=== PATIENT | male | born 1960 | race American Indian/Alaskan Native ===

== ENCOUNTER 2016-05-14 16:25 | Emergency (ER) | payer MEDICARE ==
[2016-05-14 17:45] LABS: Hematocrit 34.4 % (35.5-45.6); Mean Corpuscular HGB Conc 32 % (32-34); Mean Corpuscular Hemoglobin 27 pg (28-32); Mean Corpuscular Volume 85 fl (84-94); Platelet Count 171 K/mm3 (140-440); Red Blood Count 4.05 M/mm3 (3.65-5.03); Red Cell Distribution Width 17.4 % (13.2-15.2); White Blood Count 3.8 K/mm3 (4.5-11.0)
[2016-05-14 17:49] LABS: Albumin 3.6 g/dL (3.9-5); Albumin/Globulin Ratio 0.9 %; BUN/Creatinine Ratio 2.68; Bilirubin,Total 0.3 mg/dL (0.1-1.2); Calcium 9.6 mg/dL (8.4-10.2); Chloride 97.9 mmol/L (98-107); Potassium 5.2 mmol/L (3.6-5.0); Total Protein 7.4 g/dL (6.3-8.2)
[2016-05-14 18:26] LABS: Basophils % (Manual) 0 % (0.0-1.8); Blastocytes % (Manual) 0 %; Elliptocytes 1+
[2016-05-14 18:27] LABS: Hypochromasia 1+
[2016-05-14 18:28] LABS: Diff Status Complete; Poikilocytosis Few
[2016-05-15] MEDS ORDERED: TORADOL IM ONE (03:21)
--- NOTE | 2016-05-15 03:29 | Emergency Department Report ---
HPI - General Chief Complaint: Abdominal Pain Time Seen by Provider: 05/15/16 03:14 - HPI HPI: Room 26 The patient is a 56-year-old male presenting with a chief complaint of left flank pain. The patient states his had pain in his left back for the past 4 days. Patient states pain has been constant and he only describes the discomfort as a "pain." Patient does admit to nausea vomiting but he had attributed that to his hemodialysis. Patient denies abdominal pain or fever. The patient does not make urine the patient was last dialyzed 05/13/2016 Location: Left lumbar, paraspinous region Duration: 4 Days Quality: "Pain" Severity: 11/29 Modifying factors: [see above] Context: [see above] Mode of transportation: The patient drove himself to the emergency department and there are no visitors present ED Past Medical Hx - Past Medical History Hx CVA: Yes Additional medical history: Dialysis - Surgical History Additional Surgical History: Button holes dialysis access to left forearm - Family History Family history: no significant - Social History Smoking Status: Never Smoker Substance Use Type: None - Medications Home Medications: Home Medications Medication Instructions Recorded Confirmed Last Taken Type Cyclobenzaprine [Flexeril] 10 mg PO TID PRN #14 tablet 05/15/16 Unknown Rx HYDROcodone/APAP 5-325 [[place] 1 - 2 each PO Q6HR PRN #14 tablet 05/15/16 Unknown Rx 5/325] Ibuprofen [Motrin 800 MG tab] 800 mg PO Q8HR PRN #20 tablet 05/15/16 Unknown Rx ED Review of Systems ROS: Stated complaint: KIDNEY PAIN/DIZZINESS Other details as noted in HPI Comment: All other systems reviewed and negative Constitutional: denies: chills, fever Eyes: denies: eye pain, eye discharge, vision change ENT: denies: ear pain, throat pain Respiratory: denies: cough, shortness of breath, wheezing Cardiovascular: denies: chest pain, palpitations Endocrine: no symptoms reported Gastrointestinal: nausea. denies: abdominal pain Genitourinary: denies: urgency, dysuria Musculoskeletal: back pain Skin: denies: rash, lesions Neurological: denies: headache, weakness, paresthesias Psychiatric: denies: anxiety, depression Hematological/Lymphatic: denies: easy bleeding, easy bruising Physical Exam - Physical Exam Vital Signs: Vital Signs 03/05/15/16 05/15/16 16:54 00:54 00:55 Temperature 99.1 F Pulse Rate 84 66 61 Respiratory 18 13 18 Rate Blood Pressure 157/103 161/83 O2 Sat by Pulse 99 99 99 Oximetry 05/15/16 05/15/16 05/15/16 01:00 01:06 01:10 Temperature Pulse Rate 65 65 64 Respiratory 14 14 13 Rate Blood Pressure 146/88 146/88 146/88 O2 Sat by Pulse 98 98 99 Oximetry 05/15/16 05/15/16 05/15/16 01:15 01:20 01:26 Temperature Pulse Rate 64 70 75 Respiratory 13 12 11 L Rate Blood Pressure 143/79 143/79 143/79 O2 Sat by Pulse 97 96 99 Oximetry 05/15/16 05/15/16 05/15/16 01:30 01:36 01:40 Temperature Pulse Rate 73 70 65 Respiratory 11 L 16 12 Rate Blood Pressure 130/88 130/88 130/88 O2 Sat by Pulse 100 97 94 Oximetry 05/15/16 05/15/16 05/15/16 01:45 01:50 01:56 Temperature Pulse Rate 72 67 60 Respiratory 14 13 14 Rate Blood Pressure 131/80 131/80 131/80 O2 Sat by Pulse 93 95 Oximetry 05/15/16 05/15/16 05/15/16 02:00 02:06 02:10 Temperature Pulse Rate 69 66 65 Respiratory 11 L 10 L 12 Rate Blood Pressure 131/80 137/79 137/79 O2 Sat by Pulse 94 96 94 Oximetry 05/15/16 05/15/16 05/15/16 02:15 02:20 02:26 Temperature Pulse Rate 61 60 65 Respiratory 11 L 15 13 Rate Blood Pressure 147/80 147/80 147/80 O2 Sat by Pulse 95 95 96 Oximetry 05/15/16 05/15/16 05/15/16 02:30 02:36 02:40 Temperature Pulse Rate 69 66 70 Respiratory 13 10 L 13 Rate Blood Pressure 141/82 141/82 141/82 O2 Sat by Pulse 97 96 97 Oximetry 05/15/16 05/15/16 05/15/16 02:45 02:50 02:56 Temperature Pulse Rate 62 60 68 Respiratory 9 L 10 L 11 L Rate Blood Pressure 134/77 134/77 134/77 O2 Sat by Pulse 100 97 100 Oximetry 05/15/16 03:00 Temperature Pulse Rate 64 Respiratory 10 L Rate Blood Pressure 139/79 O2 Sat by Pulse 100 Oximetry Physical Exam: GENERAL: The patient is well-developed well-nourished male lying on stretcher sleeping not appearing to be in acute distress. [] HEENT: Normocephalic. Atraumatic. Extraocular motions are intact. Patient has moist mucous membranes. NECK: Supple. Trachea midline CHEST/LUNGS: Clear to auscultation. There is no respiratory distress noted. HEART/CARDIOVASCULAR: Regular. There is no tachycardia. There is no gallop rub or murmur. ABDOMEN: Abdomen is soft, nontender. Patient has normal bowel sounds. There is no abdominal distention. SKIN: There is no rash. There is no edema. There is no diaphoresis. NEURO: The patient is awake, alert, and oriented. The patient is cooperative. The patient has normal speech MUSCULOSKELETAL: There is no CVA tenderness. There is no evidence of acute injury. ED Course Vital Signs 05/14/16 05/15/16 05/15/16 16:54 00:54 00:55 Temperature 99.1 F Pulse Rate 84 66 61 Respiratory 18 13 18 Rate Blood Pressure 157/103 161/83 O2 Sat by Pulse 99 99 99 Oximetry 05/15/16 05/15/16 05/15/16 01:00 01:06 01:10 Temperature Pulse Rate 65 65 64 Respiratory 14 14 13 Rate Blood Pressure 146/88 146/88 146/88 O2 Sat by Pulse 98 98 99 Oximetry 05/15/16 05/15/16 05/15/16 01:15 01:20 01:26 Temperature Pulse Rate 64 70 75 Respiratory 13 12 11 L Rate Blood Pressure 143/79 143/79 143/79 O2 Sat by Pulse 97 96 99 Oximetry 05/15/16 05/15/16 05/15/16 01:30 01:36 01:40 Temperature Pulse Rate 73 70 65 Respiratory 11 L 16 12 Rate Blood Pressure 130/88 130/88 130/88 O2 Sat by Pulse 100 97 94 Oximetry 05/15/16 05/15/16 05/15/16 01:45 01:50 01:56 Temperature Pulse Rate 72 67 60 Respiratory 14 13 14 Rate Blood Pressure 131/80 131/80 131/80 O2 Sat by Pulse 93 95 Oximetry 05/15/16 05/15/16 05/15/16 02:00 02:06 02:10 Temperature Pulse Rate 69 66 65 Respiratory 11 L 10 L 12 Rate Blood Pressure 131/80 137/79 137/79 O2 Sat by Pulse 94 96 94 Oximetry 05/15/16 05/15/16 05/15/16 02:15 02:20 02:26 Temperature Pulse Rate 61 60 65 Respiratory 11 L 15 13 Rate Blood Pressure 147/80 147/80 147/80 O2 Sat by Pulse 95 95 96 Oximetry 05/15/16 05/15/16 05/15/16 02:30 02:36 02:40 Temperature Pulse Rate 69 66 70 Respiratory 13 10 L 13 Rate Blood Pressure 141/82 141/82 141/82 O2 Sat by Pulse 97 96 97 Oximetry 05/15/16 05/15/16 05/15/16 02:45 02:50 02:56 Temperature Pulse Rate 62 60 68 Respiratory 9 L 10 L 11 L Rate Blood Pressure 134/77 134/77 134/77 O2 Sat by Pulse 100 97 100 Oximetry 05/15/16 03:00 Temperature Pulse Rate 64 Respiratory 10 L Rate Blood Pressure 139/79 O2 Sat by Pulse 100 Oximetry - Reevaluation(s) Reevaluation #1: 05/15/16 04:33 Patient resting comfortably ED Medical Decision Making - Lab Data Result diagrams: 05/14/16 17:11 05/14/16 17:11 Laboratory Tests 05/14/16 05/14/16 17:11 17:11 WBC 3.8 L RBC 4.05 Hgb 11.0 L Hct 34.4 L MCV 85 MCH 27 L MCHC 32 RDW 17.4 H Plt Count 171 Lymph % (Auto) Audio Visual Technician [place] % (Auto) Audio Visual Technician Eos % (Auto) Audio Visual Technician Baso % (Auto) Audio Visual Technician Lymph # Audio Visual Technician [place] # Audio Visual Technician Eos # Audio Visual Technician Baso # Audio Visual Technician Add Manual Diff Complete Total Counted 100 Seg Neutrophils % Audio Visual Technician Seg Neuts % (Manual) 62.0 Band Neutrophils % 0 Lymphocytes % (Manual) 24.0 Reactive Lymphs % (Man) 1.0 Monocytes % (Manual) 9.0 H Eosinophils % (Manual) 3.0 Basophils % (Manual) 0 Metamyelocytes % 0 Myelocytes % 1.0 Promyelocytes % 0 Blast Cells % 0 Nucleated RBC % Not Reportable Seg Neutrophils # Audio Visual Technician Seg Neutrophils # Man 2.4 Band Neutrophils # 0.0 Lymphocytes # (Manual) 0.9 L Abs React Lymphs (Man) 0.0 Monocytes # (Manual) 0.3 Eosinophils # (Manual) 0.1 Basophils # (Manual) 0.0 Metamyelocytes # 0.0 Myelocytes # 0.0 Promyelocytes # 0.0 Blast Cells # 0.0 WBC Morphology Not Reportable Hypersegmented Neuts Not Reportable Hyposegmented Neuts Not Reportable Hypogranular Neuts Not Reportable Smudge Cells Not Reportable Toxic Granulation Not Reportable Toxic Vacuolation Not Reportable Dohle Bodies Not Reportable Pelger-Huet Anomaly Not Reportable Heather Rods Not Reportable Platelet Estimate Appears normal Clumped Platelets Not Reportable Plt Clumps, EDTA Not Reportable Large Platelets Not Reportable Giant Platelets Not Reportable Platelet Satelliting Not Reportable Plt Morphology Comment Not Reportable RBC Morphology Not Reportable Dimorphic RBCs Not Reportable Polychromasia Not Reportable Hypochromasia 1+ Poikilocytosis Few Anisocytosis Not Reportable Microcytosis Not Reportable Macrocytosis Not Reportable Spherocytes Not Reportable Pappenheimer Bodies Not Reportable Sickle Cells Not Reportable Target Cells Not Reportable Tear Drop Cells Not Reportable Ovalocytes Not Reportable Helmet Cells Not Reportable [place]-Prue Bodies Not Reportable [place] Rings Not Reportable Gita Cells Not Reportable Bite Cells Not Reportable Crenated Cell Not Reportable Elliptocytes 1+ Acanthocytes (Spur) Not Reportable Rouleaux Not Reportable Hemoglobin C Crystals Not Reportable Schistocytes Not Reportable Malaria parasites Not Reportable Erik Bodies Not Reportable Hem Pathologist Commnt No Sodium 140 Potassium 5.2 H Chloride 97.9 L Carbon Dioxide 27 Anion Gap 20 BUN 26 H Creatinine 9.7 H Estimated GFR 7 BUN/Creatinine Ratio 2.68 Glucose 90 Calcium 9.6 Total Bilirubin 0.3 AST 19 ALT 16 Alkaline Phosphatase 80 Total Protein 7.4 Albumin 3.6 L Albumin/Globulin Ratio 0.9 Lipase 70 H - Radiology Data Radiology results: report reviewed (CT abdomen and pelvis), image reviewed (CT abdomen and pelvis) CT abdomen and pelvis (read by radiologist)-there is been a right nephrectomy. There is atrophy of the left kidney. There is a 2 mm stone in the left kidney. There is no hydronephrosis. There are diverticula of the colon. There is no diverticulitis or colitis or instruction or mass. The stomach, small bowel and appendix are normal. There is no ascites, free air, abscess or adenopathy. There are multilevel degenerative lumbar intervertebral disc changes. There is subcutaneous air and intramuscular in the left gluteal muscles and adjacent subcutaneous fat. This could be from recent injection or other trauma. Infection with gas forming organism not excluded. There is no mass or abscess. - Differential Diagnosis renal colic, muscle strain, lumbar radiculopathy, zoster Critical care attestation.: If time is entered above; I have spent that time in minutes in the direct care of this critically ill patient, excluding procedure time. ED Disposition Clinical Impression: ESRD (end stage renal disease) on dialysis, Hyperkalemia, Lumbar back pain, Degenerative disc disease, lumbar Disposition: DISCHARGED TO HOME OR SELFCARE Is pt being admited?: No Does the pt Need Aspirin: No Condition: Stable Instructions: Chronic Kidney Disease (ED), Acute Low Back Pain (ED), Lumbar Radiculopathy (ED), Degenerative Disc Disease (ED) Additional Instructions: Return to the emergency department immediately should you develop worsening symptoms, fever, inability to tolerate food or liquid or any other concerns. Prescriptions: Cyclobenzaprine [Flexeril] 10 mg PO TID PRN #14 tablet PRN Reason: Muscle Spasm HYDROcodone/APAP 5-325 [[place] 5/325] 1 - 2 each PO Q6HR PRN #14 tablet PRN Reason: Pain Ibuprofen [Motrin 800 MG tab] 800 mg PO Q8HR PRN #20 tablet PRN Reason: Pain Referrals: JOSSIE ROBERTS [Primary Care Provider] - 3-5 Days GREGG WRIGHT MD [Staff Physician] - 3-5 Days (Dr. Wright is an orthopedic surgeon please follow up with him for further evaluation) Time of Disposition: 04:41
[2016-05-15 04:03] VITALS: BP 138/84
--- NOTE | 2016-05-15 04:23 | Cat Scan Report ---
FINAL REPORT PROCEDURE: CT ABDOMEN PELVIS WO CON TECHNIQUE: Computerized axial tomography of the abdomen and pelvis was performed without intravenous contrast. This study is performed without intravascular contrast material and its sensitivity for abdominal and pelvic pathology, including neoplasms, inflammation, abscess, free fluid, thrombosis, arterial dissection and infarction, is reduced compared with a contrast enhanced study. HISTORY: left flank pain COMPARISON: No prior studies are available for comparison. FINDINGS: Visualized lower thorax: No significant abnormality. Liver: Normal size and attenuation. Spleen: Normal size and attenuation. Gallbladder and biliary system: Normal. Pancreas: Normal. Adrenals: Normal. Kidneys: There has been a right nephrectomy. There is atrophy of the left kidney. There is a 2 millimeter stone in the left kidney. There is no hydronephrosis. The. GI tract: There are diverticula of the colon. There is no diverticulitis or colitis or obstruction or mass. The stomach, small bowel and appendix are normal.. Lymph nodes and mesentery: Normal. Vasculature: There is calcified plaque in the abdominal aorta. There is no aneurysm.. Bladder: Normal. Reproductive organs: Normal. Peritoneum: There is no ascites, free air, abscess or adenopathy. The. Musculoskeletal structures: There are multilevel degenerative disc changes.. Other: There is subcutaneous air and intramuscular air on the left in the left gluteal muscles and adjacent subcutaneous fat. This could be from recent injection or other trauma. Infection with gas-forming organism not excluded. There is no mass or abscess.. IMPRESSION: There has been a right nephrectomy. There is atrophy of the left kidney. There is a 2 millimeter stone in the left kidney. There is no hydronephrosis. There are diverticula of the colon. There is no diverticulitis or colitis or obstruction or mass. The stomach, small bowel and appendix are normal.. There is no ascites, free air, abscess or adenopathy. The. There are multilevel degenerative the lumbar intervertebral disc changes.. There is subcutaneous air and intramuscular air in the left gluteal muscles and adjacent subcutaneous fat. This could be from recent injection or other trauma. Infection with gas-forming organism not excluded. There is no mass or abscess.. .
== END 2016-05-15 04:46 | disposition home or self-care (01) ==
LOC: ED 16:25
DX: N18.6 End stage renal disease (principal); M51.36 Other intervertebral disc degeneration, lumbar region; E87.5 Hyperkalemia; I63.9 Cerebral infarction, unspecified; Z99.2 Dependence on renal dialysis
CPT/HCPCS: 36415; 74176; 80053; 83690; 85007; 85025; 96372; 99284; J1885

== ENCOUNTER 2016-08-31 19:48 | Emergency (ER) | payer MEDICARE ==
[2016-08-31 20:16] LABS: Basophils % (Auto) 0.8 % (0.0-1.8); Eosinophils % (Auto) 4.4 % (0.0-4.3); Hematocrit 39.2 % (35.5-45.6); Hemoglobin 12.7 gm/dl (11.8-15.2); Mean Corpuscular HGB Conc 32 % (32-34); Mean Corpuscular Hemoglobin 28 pg (28-32); Mean Corpuscular Volume 86 fl (84-94); Platelet Count 227 K/mm3 (140-440); Red Blood Count 4.56 M/mm3 (3.65-5.03); Red Cell Distribution Width 18.5 % (13.2-15.2)
[2016-08-31 20:33] LABS: BUN/Creatinine Ratio 2.98; Bilirubin,Total 0.2 mg/dL (0.1-1.2); Calcium 9.7 mg/dL (8.4-10.2); Chloride 91.3 mmol/L (98-107); Potassium 4.2 mmol/L (3.6-5.0); Total Protein 8.2 g/dL (6.3-8.2)
[2016-08-31] MEDS ORDERED: BENTYL PO ONE (23:07)
[2016-08-31] MEDS ORDERED: CARAFATE PO ONE (23:07)
[2016-08-31] MEDS ORDERED: ALUM-MAG HYDROX-SIMETH 200-200-20MG/5ML PO ONE (23:07)
[2016-08-31] MEDS ORDERED: PEPCID PO ONE (23:07)
--- NOTE | 2016-08-31 23:09 | Emergency Department Report ---
ED General Adult HPI - General Chief complaint: Abdominal Pain Stated complaint: LEFT SIDE ABD PAIN Time Seen by Provider: 08/31/16 23:00 Source: patient, RN notes reviewed, old records reviewed Mode of arrival: Ambulatory Limitations: No Limitations - History of Present Illness Initial comments: This is a 56-year-old male. He is previously unknown to me. His nephrology specialist is Dr. Roberts. Patient has a past medical history of end-stage renal disease on dialysis, typically gets dialysis Monday, Monday, Monday. The patient is sent to the ER by his primary care filling hauler for evaluation of left lower quadrant pain. The pain has been present for 2 weeks. It is intermittent. It does not radiate anywhere. There is no nausea, vomiting or diarrhea. No fevers or chills. No chest pain or shortness of breath. No testicular pain. No irritative or obstructive urinary symptoms. Patient reports defecating normally. -: Gradual, week(s) Location: abdomen Radiation: non-radiation Quality: aching Consistency: intermittent Improves with: none Worsens with: none Associated Symptoms: denies other symptoms - Related Data Previous Rx's Medication Instructions Recorded Last Taken Type Cyclobenzaprine [Flexeril] 10 mg PO TID PRN #14 tablet 05/15/16 Unknown Rx HYDROcodone/APAP 5-325 [[place] 1 - 2 each PO Q6HR PRN #14 tablet 05/15/16 Unknown Rx 5/325] Ibuprofen [Motrin 800 MG tab] 800 mg PO Q8HR PRN #20 tablet 05/15/16 Unknown Rx Dicyclomine [Bentyl] 10 mg PO QID PRN #20 capsule 09/01/16 Unknown Rx Ondansetron [Zofran Odt] 4 mg PO QID PRN #20 tab.rapdis 09/01/16 Unknown Rx Allergies Allergy/AdvReac Type Severity Reaction Status Date / Time No Known Allergies Allergy Unverified 07/15/14 06:30 ED Review of Systems ROS: Stated complaint: LEFT SIDE ABD PAIN Other details as noted in HPI Constitutional: denies: fever Eyes: denies: vision change ENT: denies: epistaxis Respiratory: denies: cough Cardiovascular: denies: chest pain Gastrointestinal: abdominal pain Genitourinary: as per HPI. denies: testicular pain Musculoskeletal: denies: back pain Skin: denies: lesions Neurological: denies: weakness ED Past Medical Hx - Past Medical History Previous Medical History?: Yes Hx CVA: Yes (13 YEARS AGO) Hx Asthma: No Additional medical history: Dialysis - Surgical History Past Surgical History?: Yes Additional Surgical History: Button holes dialysis access to left forearm - Social History Smoking Status: Never Smoker Substance Use Type: None - Medications Home Medications: Home Medications Medication Instructions Recorded Confirmed Last Taken Type Cyclobenzaprine [Flexeril] 10 mg PO TID PRN #14 tablet 05/15/16 Unknown Rx HYDROcodone/APAP 5-325 [[place] 1 - 2 each PO Q6HR PRN #14 tablet 05/15/16 Unknown Rx 5/325] Ibuprofen [Motrin 800 MG tab] 800 mg PO Q8HR PRN #20 tablet 05/15/16 Unknown Rx Dicyclomine [Bentyl] 10 mg PO QID PRN #20 capsule 09/01/16 Unknown Rx Ondansetron [Zofran Odt] 4 mg PO QID PRN #20 tab.rapdis 09/01/16 Unknown Rx ED Physical Exam - General Limitations: No Limitations General appearance: alert, in no apparent distress - Head Head exam: Present: atraumatic, normocephalic - Eye Eye exam: Present: normal appearance, EOMI. Absent: nystagmus - ENT ENT exam: Present: normal exam, normal orophraynx, mucous membranes moist, normal external ear exam - Neck Neck exam: Present: normal inspection, full ROM. Absent: tenderness, meningismus - Respiratory Respiratory exam: Present: normal lung sounds bilaterally. Absent: respiratory distress, wheezes, rales, rhonchi, stridor, chest wall tenderness, accessory muscle use, decreased breath sounds, prolonged expiratory - Cardiovascular Cardiovascular Exam: Present: regular rate, normal rhythm, normal heart sounds. Absent: bradycardia, tachycardia, irregular rhythm, systolic murmur, diastolic murmur, rubs, gallop - GI/Abdominal GI/Abdominal exam: Present: soft, normal bowel sounds. Absent: distended, tenderness, guarding, rebound, rigid, pulsatile mass, hernia - Rectal Rectal exam: Present: deferred - exam: Present: normal inspection, other (no inguinal hernias appreciated). Absent: testicular tenderness, scrotal swelling External exam: Present: normal external exam, other (there is no testicular tenderness. There is normal testicular lie bilaterally. There is normal cremasteric reflex bilaterally.) - Extremities Exam Extremities exam: Present: normal inspection, full ROM, normal capillary refill , other (upper extremity graft with appropriate thrill. No redness, pus or streaking). Absent: pedal edema, joint swelling, calf tenderness - Back Exam Back exam: Present: normal inspection, full ROM. Absent: tenderness, CVA tenderness (R), CVA tenderness (L), muscle spasm, paraspinal tenderness, vertebral tenderness - Neurological Exam Neurological exam: Present: alert, oriented X3, normal gait, other (Extraocular movements intact. Tongue midline. No facial droop. Facial sensation intact to light touch in the V1, V2, V3 distribution bilaterally. 5 and 5 strength in 4 extremities.. Sensation is intact to light touch in 4 extremities.). Absent : motor sensory deficit - Psychiatric Psychiatric exam: Present: normal affect, normal mood - Skin Skin exam: Present: warm, dry, intact, normal color. Absent: rash ED Course Vital Signs 08/31/16 08/31/16 09/01/16 19:53 22:45 00:15 Temperature 97.4 F L Pulse Rate 100 H 89 87 Respiratory 20 16 18 Rate Blood Pressure 136/93 Blood Pressure 134/87 146/99 [Right] O2 Sat by Pulse 100 100 99 Oximetry ED Medical Decision Making - Lab Data Result diagrams: 08/31/16 20:01 08/31/16 20:01 Vital Signs 08/31/16 19:53 Temperature 97.4 F L Pulse Rate 100 H Respiratory 20 Rate Blood Pressure 136/93 O2 Sat by Pulse 100 Oximetry Lab Results 08/31/16 08/31/16 Range/Units 20:01 20:01 WBC 6.0 (4.5-11.0) K/mm3 RBC 4.56 (3.65-5.03) M/mm3 Hgb 12.7 (11.8-15.2) gm/dl Hct 39.2 (35.5-45.6) % MCV 86 (84-94) fl MCH 28 (28-32) pg MCHC 32 (32-34) % RDW 18.5 H (13.2-15.2) % Plt Count 227 (140-440) K/mm3 Lymph % (Auto) 23.5 (13.4-35.0) % Jay % (Auto) 12.5 H (0.0-7.3) % Eos % (Auto) 4.4 H (0.0-4.3) % Baso % (Auto) 0.8 (0.0-1.8) % Lymph # 1.4 (1.2-5.4) K/mm3 Jay # 0.7 (0.0-0.8) K/mm3 Eos # 0.3 (0.0-0.4) K/mm3 Baso # 0.0 (0.0-0.1) K/mm3 Seg Neutrophils % 58.8 (40.0-70.0) % Seg Neutrophils # 3.5 (1.8-7.7) K/mm3 Sodium 136 L (137-145) mmol/L Potassium 4.2 (3.6-5.0) mmol/L Chloride 91.3 L (98-107) mmol/L Carbon Dioxide 30 (22-30) mmol/L Anion Gap 19 mmol/L BUN 29 H (9-20) mg/dL Creatinine 9.7 H (0.8-1.5) mg/dL Estimated GFR 7 ml/min BUN/Creatinine Ratio 2.98 % Glucose 100 (75-100) mg/dL Calcium 9.7 (8.4-10.2) mg/dL Total Bilirubin 0.20 (0.1-1.2) mg/dL AST 17 (5-40) units/L ALT 11 (7-56) units/L Alkaline Phosphatase 64 (35-129) units/L Total Protein 8.2 (6.3-8.2) g/dL Albumin 4.0 (3.9-5) g/dL Albumin/Globulin Ratio 1.0 % - Radiology Data Radiology results: report reviewed, image reviewed Noncontrast CT scan of the abdomen and pelvis negative for acute disease. Chronic findings noted. Status post right nephrectomy - Medical Decision Making Differential diagnosis: Colitis, diverticulitis, renal colic, hernia, constipation Assessment and plan: 56-year-old male with 2 weeks of intermittent Left lower quadrant pain. He is afebrile, with reassuring vital signs, and his tachycardia has resolved. His genital exam is benign, his physical exam is benign, laboratory studies are unremarkable with the exception of chronic known renal insufficiency, and a noncontrast CT scan of the abdomen and pelvis did not demonstrate any significant disease. The patient was able to tolerate liquid feeds and he felt improved after pain medication. He will be discharged with pain medication, nausea medication, and instructions to follow up with outpatient primary care and nephrology. Return precautions are reviewed. Critical care attestation.: If time is entered above; I have spent that time in minutes in the direct care of this critically ill patient, excluding procedure time. ED Disposition Clinical Impression: ESRD (end stage renal disease) on dialysis, Abdominal pain, left lower quadrant Disposition: - TO HOME OR SELFCARE Is pt being admited?: No Does the pt Need Aspirin: No Condition: Stable Instructions: Abdominal Pain (ED) Additional Instructions: Take the pain medication, nausea medication as directed. Follow up with her primary care doctor or nephrology specialist within the next 7-10 days. Return to the ER right away with new pain, worsened pain, migration of pain, fevers, chills, chest pain, shortness of breath, confusion, weakness, inability to tolerate liquid feeds. Prescriptions: Dicyclomine [Bentyl] 10 mg PO QID PRN #20 capsule PRN Reason: Pain Ondansetron [Zofran Odt] 4 mg PO QID PRN #20 tab.rapdis PRN Reason: Nausea Referrals: RILEY ROBERTS MD [Primary Care Provider] - 3-5 Days JAYNE JUNIOR MD [Staff Physician] - 3-5 Days
--- NOTE | 2016-09-01 00:20 | Cat Scan Report ---
FINAL REPORT EXAM: CT ABDOMEN PELVIS WO CON HISTORY: llq abd pain HX OF NEPHRECTOMY PRIOR GI DIALYSIS CATHETER TECHNIQUE: Serial axial images through the abdomen and pelvis with coronal and sagittal reconstruction. PRIORS: None. FINDINGS: There is mild atelectasis in the left lung base. No pleural effusion is seen. The liver, gallbladder, pancreas, spleen and adrenal glands appear within normal limits. Right kidney is absent. There atrophy of the left kidney. There is a cyst in the left renal cortex that measures approximately 13 millimeters. Additional hypodense foci are seen which are too small to definitely characterize. Aorta is normal in caliber. Bladder is decompressed. Small amount of low-density a ascites is seen in pelvis. Appendix appears normal. There is not evidence of bowel obstruction. No gross bowel abnormality is identified. Degenerative changes are seen right hip and in the spine. Irregular appearance to the endplates are noted at L3-4 and L2-3. IMPRESSION: 1. Small volume a ascites in the pelvis. This was present on the prior examination as well. 2. Left renal cyst. Additional hypodense foci are seen in the left kidney which are too small to definitely characterize.
[2016-09-01 00:39] VITALS: BP 146/99
== END 2016-09-01 01:15 | disposition left against medical advice (07) ==
LOC: ED 19:48
DX: R10.32 Left lower quadrant pain (principal); N18.6 End stage renal disease; Z99.2 Dependence on renal dialysis; Z86.73 Personal history of transient ischemic attack (TIA), and cerebral infarction without residual deficits
CPT/HCPCS: 36415; 74176; 80053; 85025; 99284

== ENCOUNTER 2017-06-09 13:17 | Emergency (ER) | payer MEDICARE ==
[2017-06-09 14:35] LABS: Hematocrit 36.1 % (35.5-45.6); Hemoglobin 11.3 gm/dl (11.8-15.2); Mean Corpuscular HGB Conc 31 % (32-34); Mean Corpuscular Hemoglobin 28 pg (28-32); Mean Corpuscular Volume 89 fl (84-94); Platelet Count 137 K/mm3 (140-440); Red Blood Count 4.06 M/mm3 (3.65-5.03); Red Cell Distribution Width 19.8 % (13.2-15.2)
[2017-06-09 14:54] LABS: BUN/Creatinine Ratio 4; Blood Urea Nitrogen 46 mg/dL (9-20); Calcium 9.7 mg/dL (8.4-10.2); Hemolysis Index 4
[2017-06-09 15:53] LABS: Anisocytosis 1+; Ovalocytes Few; Tear Drop Cells Rare; Total Cells Counted 100
[2017-06-09 15:54] LABS: Platelet Estimate Consistent w Auto
[2017-06-09 21:23] VITALS: BP 144/99
--- NOTE | 2017-06-09 22:51 | Emergency Department Report ---
ED General Adult HPI - General Chief complaint: Medical Clearance Stated complaint: DIALYSIS Time Seen by Provider: 06/09/17 21:51 Source: patient Mode of arrival: Ambulatory Limitations: No Limitations - History of Present Illness Initial comments: Patient presents to emergency Department for dialysis. Patient states that he was sent to the ED via his inspecting machine adjuster for dialysis. Patient states his last dialysis treatment was on Monday. Patient denies shortness of breath or chest pain. -: Gradual Radiation: non-radiation Severity scale (0 -10): 0 Improves with: none Worsens with: none Associated Symptoms: denies other symptoms Treatments Prior to Arrival: none - Related Data Previous Rx's Medication Instructions Recorded Last Taken Type Cyclobenzaprine [Flexeril] 10 mg PO TID PRN #14 tablet 05/15/16 Unknown Rx HYDROcodone/APAP 5-325 [[place] 1 - 2 each PO Q6HR PRN #14 tablet 05/15/16 Unknown Rx 5/325] Ibuprofen [Motrin 800 MG tab] 800 mg PO Q8HR PRN #20 tablet 05/15/16 Unknown Rx Dicyclomine [Bentyl] 10 mg PO QID PRN #20 capsule 09/01/16 Unknown Rx Ondansetron [Zofran Odt] 4 mg PO QID PRN #20 tab.rapdis 09/01/16 Unknown Rx Allergies Allergy/AdvReac Type Severity Reaction Status Date / Time No Known Allergies Allergy Unverified 07/15/14 06:30 ED Review of Systems ROS: Stated complaint: DIALYSIS Other details as noted in HPI Comment: All other systems reviewed and negative Constitutional: denies: chills, fever Eyes: denies: eye pain, eye discharge, vision change ENT: denies: ear pain, throat pain Respiratory: denies: cough, shortness of breath, wheezing Cardiovascular: denies: chest pain, palpitations Endocrine: no symptoms reported Gastrointestinal: denies: abdominal pain, nausea, diarrhea Genitourinary: denies: urgency, dysuria Musculoskeletal: denies: back pain, joint swelling, arthralgia Skin: denies: rash, lesions Neurological: denies: headache, weakness, paresthesias Psychiatric: denies: anxiety, depression Hematological/Lymphatic: denies: easy bleeding, easy bruising ED Past Medical Hx - Past Medical History Hx CVA: Yes (13 YEARS AGO) Hx Renal Disease: Yes (DIALYSIS) Hx Asthma: No Additional medical history: Dialysis - Surgical History Additional Surgical History: Button holes dialysis access to left forearm, BACK SURGERY - Social History Smoking Status: Never Smoker Substance Use Type: None - Medications Home Medications: Home Medications Medication Instructions Recorded Confirmed Last Taken Type Cyclobenzaprine [Flexeril] 10 mg PO TID PRN #14 tablet 05/15/16 Unknown Rx HYDROcodone/APAP 5-325 [[place] 1 - 2 each PO Q6HR PRN #14 tablet 05/15/16 Unknown Rx 5/325] Ibuprofen [Motrin 800 MG tab] 800 mg PO Q8HR PRN #20 tablet 05/15/16 Unknown Rx Dicyclomine [Bentyl] 10 mg PO QID PRN #20 capsule 09/01/16 Unknown Rx Ondansetron [Zofran Odt] 4 mg PO QID PRN #20 tab.rapdis 09/01/16 Unknown Rx ED Physical Exam - General Limitations: No Limitations General appearance: alert, in no apparent distress - Head Head exam: Present: atraumatic, normocephalic - Eye Eye exam: Present: normal appearance - ENT ENT exam: Present: mucous membranes moist - Neck Neck exam: Present: normal inspection - Respiratory Respiratory exam: Present: normal lung sounds bilaterally. Absent: respiratory distress - Cardiovascular Cardiovascular Exam: Present: regular rate, normal rhythm. Absent: systolic murmur, diastolic murmur, rubs, gallop - GI/Abdominal GI/Abdominal exam: Present: soft, normal bowel sounds. Absent: distended, tenderness, guarding, rebound - Rectal Rectal exam: Present: deferred - Extremities Exam Extremities exam: Present: normal inspection - Back Exam Back exam: Present: normal inspection - Neurological Exam Neurological exam: Present: alert, oriented X3 - Psychiatric Psychiatric exam: Present: normal affect, normal mood - Skin Skin exam: Present: warm, dry, intact, normal color. Absent: rash ED Course Vital Signs 06/09/17 06/09/17 13:57 21:19 Temperature 98.8 F Pulse Rate 85 84 Respiratory 18 16 Rate Blood Pressure 136/93 Blood Pressure 144/99 [Left] Blood Pressure 144/99 [Right] O2 Sat by Pulse 99 99 Oximetry ED Medical Decision Making - Lab Data Result diagrams: 06/09/17 14:09 06/09/17 14:09 - Medical Decision Making Discussed patient in detail with Dr. Waters is a inspecting machine adjuster at the patient' s dialysis center. Since the patient has normal labs the patient can follow up tomorrow and have dialysis at his home dialysis This was discussed with the patient and he states that he understands that he should go tomorrow for dialysis Critical care attestation.: If time is entered above; I have spent that time in minutes in the direct care of this critically ill patient, excluding procedure time. ED Disposition Clinical Impression: ESRD (end stage renal disease) on dialysis Disposition: DC-01 TO HOME OR SELFCARE Is pt being admited?: No Does the pt Need Aspirin: No Condition: Stable Additional Instructions: As we discussed you should go to your dialysis center tomorrow for dialysis Referrals: JESSICA PABLO [Primary Care Provider] - 3-5 Days Time of Disposition: 23:18
== END 2017-06-09 23:25 | disposition home or self-care (01) ==
LOC: ED 13:17
DX: N18.6 End stage renal disease (principal)
CPT/HCPCS: 36415; 80048; 83880; 85007; 85025

== ENCOUNTER 2017-08-28 06:44 | Inpatient (IN) | payer MEDICARE ==
[2017-08-28] MEDS ORDERED: ECOTRIN PO ONE (07:04)
[2017-08-28 07:44] LABS: Hematocrit 37.5 % (35.5-45.6); Hemoglobin 12.1 gm/dl (11.8-15.2); Mean Corpuscular HGB Conc 32 % (32-34); Mean Corpuscular Hemoglobin 29 pg (28-32); Mean Corpuscular Volume 89 fl (84-94); Platelet Count 101 K/mm3 (140-440); Red Blood Count 4.22 M/mm3 (3.65-5.03); Red Cell Distribution Width 18.7 % (13.2-15.2)
[2017-08-28 07:47] LABS: Basophils % (Auto) 0.6 % (0.0-1.8); Eosinophils % (Auto) 0.5 % (0.0-4.3); Lymphocytes # (Auto) 1.3 K/mm3 (1.2-5.4); Lymphocytes % (Auto) 17.2 % (13.4-35.0); Monocytes # (Auto) 0.7 K/mm3 (0.0-0.8); Monocytes % (Auto) 9.3 % (0.0-7.3)
[2017-08-28 07:54] LABS: INR 1.08 (0.87-1.13)
[2017-08-28 07:55] LABS: Partial Thromboplastin Time 32.7 Sec. (24.2-36.6)
[2017-08-28] MEDS ORDERED: NACL 0.9% 500 ML 500 ML IV SCH (08:00)
[2017-08-28 08:01] LABS: Calcium 10.2 mg/dL (8.4-10.2)
--- NOTE | 2017-08-28 12:03 | History and Physical Report ---
History of Present Illness Date of examination: 08/28/17 Date of admission: 08/28/17 Chief complaint: Chest pain/hyperkalemia/end-stage renal disease History of present illness: Very pleasant 57-year-old -[place] male patient with significant history of hypertension end-stage renal disease on hemodialysis was scheduled for elective cath today by cardiology, however noted to have hyperkalemia with potassium of 6. Procedure was canceled, patient was evaluated by nephrology and is scheduled for stat hemodialysis Hospitalist services were requested to admit the patient. I have evaluated the patient in dialysis unit almost finishing hemodialysis. At the time of my evaluation patient denies any chest pain or shortness of breath Denies headache dizziness weakness or numbness. Past History Past Medical History: dialysis, ESRD, hypertension Past Surgical History: Other (AV graft, spine surgery) Social history: lives with family, full code. denies: smoking, alcohol abuse, prescription drug abuse Family history: hypertension Medications and Allergies Allergies Allergy/AdvReac Type Severity Reaction Status Date / Time No Known Allergies Allergy Unverified 07/15/14 06:30 Home Medications Medication Instructions Recorded Confirmed Last Taken Type Ibuprofen [Motrin 800 MG tab] 800 mg PO Q8HR PRN #20 tablet 05/15/16 08/28/17 Rx 800mg Ondansetron [Zofran Odt] 4 mg PO QID PRN #20 tab.rapdis 09/01/16 08/28/17 Rx 4mg Lisinopril [Zestril TAB] 2.5 mg PO 08/28/17 08/27/17 History 2.5mg Omeprazole 40 mg PO DAILY 08/28/17 08/28/17 08/27/17 History 40mg Active Meds: Active Medications Sodium Chloride (Nacl 0.9% 500 Ml) 500 mls @ 50 mls/hr IV DIRECT JEET Stop: 08/28/17 17:59 Review of Systems Constitutional: no weight loss, no weight gain, no fever, no chills Ears, nose, mouth and throat: no nasal congestion, no nasal discharge Cardiovascular: no chest pain, no palpitations, no shortness of breath Respiratory: no cough with sputum, no shortness of breath Gastrointestinal: no nausea, no vomiting, no diarrhea Genitourinary Male: no dysuria, no hematuria Musculoskeletal: no myalgias, no arthritis Integumentary: no rash, no lesions Neurological: no paralysis, no weakness, no parathesias, no seizures Psychiatric: no anxiety, no depression Endocrine: no cold intolerance, no heat intolerance Hematologic/Lymphatic: no easy bruising, no easy bleeding Allergic/Immunologic: no urticaria, no allergic rhinitis Exam - Constitutional Vitals: Temp Pulse Resp BP Pulse Ox 97.8 F 81 18 139/98 08/28/17 07:37 08/28/17 07:37 08/28/17 07:53 08/28/17 07:37 General appearance: Present: no acute distress, well-nourished - Neck Neck: Present: supple, normal ROM - Cardiovascular Rhythm: regular Heart Sounds: Present: S1 & S2 - Extremities Extremities: no ischemia, No edema - Abdominal General gastrointestinal: Present: soft, non-tender, non-distended, normal bowel sounds - Integumentary Integumentary: Present: clear, warm - Musculoskeletal Musculoskeletal: strength equal bilaterally - Psychiatric Psychiatric: appropriate mood/affect, cooperative - Neurologic Neurologic: CNII-XII intact, moves all extremities Results - Labs CBC & Chem 7: 08/28/17 07:35 08/28/17 07:35 Labs: Abnormal lab results 08/28/17 08/28/17 Range/Units 07:35 07:35 RDW 18.7 H (13.2-15.2) % Plt Count 101 L (140-440) K/mm3 [place] % (Auto) 9.3 H (0.0-7.3) % Seg Neutrophils % 72.4 H (40.0-70.0) % Potassium 6.0 H (3.6-5.0) mmol/L Chloride 95.6 L (98-107) mmol/L BUN 65 H (9-20) mg/dL Creatinine 10.9 H (0.8-1.5) mg/dL Assessment and Plan --Hyperkalemia; stat hemodialysis --End Stage renal disease on hemodialysis; Nephrology consultation, dialysis per schedule, closely monitor --Hypertension; resume home antihypertensives and when necessary medications --Chest pain/coronary artery disease, cardiology considering heart Closely monitor, aspirin, beta blockers, adithya inhibitors, nitrates and statins Serial cardiac enzymes and echocardiogram --DVT prophylaxis; heparin renal dose --DC planning. Case management Closely monitor the patient and adjust management as needed Plan of care reviewed with the patient
[2017-08-28] MEDS ORDERED: CALCIUM GLUCONATE 1,000 MG in NACL 0.9% 100 ML IV ONE (12:30)
--- NOTE | 2017-08-28 17:05 | Consultation ---
History of Present Illness - Reason for Consult Consult date: 08/28/17 end stage renal disease Requesting physician: ALFONZO ROQUE - History of Present Illness My cheek presented for elective cardiac cath . K found to be elevated and his procedure was cancelled . pt now undergoing dialysis . Tolerating well . No chest pain or SOB Past History Past Medical History: dialysis, hypertension Past Surgical History: Other (H/O AVF creation ) Social history: no significant social history Family history: no significant family history Medications and Allergies Allergies Allergy/AdvReac Type Severity Reaction Status Date / Time No Known Allergies Allergy Unverified 07/15/14 06:30 Home Medications Medication Instructions Recorded Confirmed Last Taken Type Ibuprofen [Motrin 800 MG tab] 800 mg PO Q8HR PRN #20 tablet 05/15/16 08/28/17 Rx 800mg Ondansetron [Zofran Odt] 4 mg PO QID PRN #20 tab.rapdis 09/01/16 08/28/17 Rx 4mg Lisinopril [Zestril TAB] 2.5 mg PO 08/28/17 08/27/17 History 2.5mg Omeprazole 40 mg PO DAILY 08/28/17 08/28/17 08/27/17 History 40mg Active Meds: Active Medications Aspirin (Baby Aspirin) 81 mg PO QDAY JEET Famotidine (Pepcid) 20 mg PO BID [facility] Sodium Chloride (Nacl 0.9% 500 Ml) 500 mls @ 50 mls/hr IV DIRECT JEET Stop: 08/28/17 17:59 Metoprolol Tartrate (Lopressor) 12.5 mg PO BID [facility] Review of Systems All systems: negative (as noted above) Exam - Vital Signs Vital signs: Vital Signs Temp Pulse Resp BP 97.8 F 81 18 139/98 08/28/17 07:37 08/28/17 07:37 08/28/17 07:37 08/28/17 07:37 - General Appearance General appearance: well-developed, well-nourished, appears stated age EENT: PERRL, mucous membranes moist Neck: Present: neck supple, trachea midline. Absent: JVD/HJR, Masses Respiratory: Clear to Ascultation Heart: regular, normal heart rate, S1S2, no murmurs Gastrointestinal: Present: normal, normoactive bowel sounds Integumentary: no rash, other (AVF left fore-arm . Cannulated for dialysis ) Results - Lab Results 08/28/17 07:35 08/28/17 07:35 Most recent lab results Calcium 10.2 mg/dL (8.4-10.2) 08/28/17 07:35 Assessment and Plan Impression * ESRD * Hyperkalemia * Hypertension Recommendation * Hemodialysis as being done for correction of hyperkalemia * Renal diet * Avoid nephrotoxins * No IV , BP or venipuncture in access arm * Adjus diet and meds for ESRD state * Check electrolytes in AM * Thanks, Shall follow with you
[2017-08-28] MEDS: LOPRESSOR PO SCH (22:50)
[2017-08-28] MEDS: PEPCID PO SCH (22:50)
[2017-08-29 05:24] LABS: Basophils # (Auto) 0.1 K/mm3 (0.0-0.1); Basophils % (Auto) 0.9 % (0.0-1.8); Eosinophils # (Auto) 0.1 K/mm3 (0.0-0.4); Eosinophils % (Auto) 1.1 % (0.0-4.3); Hematocrit 36.9 % (35.5-45.6); Hemoglobin 12.1 gm/dl (11.8-15.2); Lymphocytes # (Auto) 0.9 K/mm3 (1.2-5.4); Lymphocytes % (Auto) 14.6 % (13.4-35.0); Mean Corpuscular HGB Conc 33 % (32-34); Mean Corpuscular Hemoglobin 29 pg (28-32); Mean Corpuscular Volume 88 fl (84-94); Monocytes # (Auto) 0.6 K/mm3 (0.0-0.8); Monocytes % (Auto) 10.3 % (0.0-7.3); Red Blood Count 4.21 M/mm3 (3.65-5.03)
[2017-08-29 05:27] LABS: Platelet Count 89 K/mm3 (140-440)
[2017-08-29 05:52] LABS: Calcium 9.7 mg/dL (8.4-10.2)
[2017-08-29 05:55] LABS: INR 1.13 (0.87-1.13)
[2017-08-29 05:56] LABS: Partial Thromboplastin Time 35.6 Sec. (24.2-36.6)
[2017-08-29] MEDS ORDERED: HEPARIN/NS 5000 UNIT/500ML(CATH LAB) 1,000 ML IR ONE (08:18)
[2017-08-29] MEDS ORDERED: VERSED ONE (08:18)
[2017-08-29] MEDS ORDERED: SUBLIMAZE ONE ×2 (08:19→09:22)
[2017-08-29] MEDS ORDERED: D50W (25GM) Vial IV NR (08:33)
[2017-08-29] MEDS ORDERED: HALFPRIN EC PO ONE (08:38)
[2017-08-29] MEDS ORDERED: NACL 0.9% 250ML 250 ML ONE (08:52)
[2017-08-29] MEDS ORDERED: HumuLIN R IV NR (09:00)
[2017-08-29] MEDS: XYLOCAINE 2% INFILTRATI ONE ×2 (09:10→09:25)
[2017-08-29] MEDS: HEPARIN 10,000 UNITS/10 ML ONE ×2 (09:12→09:27)
[2017-08-29] MEDS: CALAN ONE ×2 (09:12→09:27)
[2017-08-29] MEDS: NITROGLYCERIN SYRINGE 3 ML ONE ×2 (09:17→09:27)
[2017-08-29] MEDS ORDERED: APRESOLINE ONE (09:23)
--- NOTE | 2017-08-29 09:37 | Progress Note ---
Assessment and Plan Impression * ESRD * Hyperkalemia * Hypertension Recommendation * Patient had Hemodialysis yesterday * Hyperkalemia partially corrected . I had asked him to run 3.5 hrs yesterday but he wanted to run only 3 hrs . * Ordered one dose of D50 and insulin . Give Kayexalate after cardiac cath in the evening * Renal diet * Avoid nephrotoxins * No IV , BP or venipuncture in access arm * Adjust diet and meds for ESRD state * Continue dialysis on MWF schedule Subjective Date of service: 08/29/17 Interval history: pt seen in [facility] awaiting cardiac cath . Denies SOB or chest pain Objective - Vital Signs Vital signs: Vital Signs - 12hr 08/28/17 08/28/17 08/29/17 21:57 22:50 00:55 Temperature 98.5 F Pulse Rate 86 79 Respiratory 18 20 Rate Blood Pressure 140/93 126/90 O2 Sat by Pulse 95 Oximetry 08/29/17 08/29/17 08/29/17 04:00 05:04 07:15 Temperature 97.7 F Pulse Rate 79 83 Respiratory 16 18 Rate Blood Pressure O2 Sat by Pulse 96 Oximetry - General Appearance General appearance: well-developed, well-nourished, appears stated age EENT: PERRL, mucous membranes moist Neck: no JVD, no thyromegaly, no carotid bruit, supple Respiratory: Present: Clear to Ascultation Cardiology: regular, normal heart rate, S1S2, no murmurs Gastrointestinal: normal, normoactive bowel sounds Integumentary: no rash, other (AVF left fore-arm . Good bruit and thrill ) - Lab 08/29/17 04:57 08/29/17 04:57 Most recent lab results Calcium 9.7 mg/dL (8.4-10.2) 08/29/17 04:57 Magnesium 2.00 mg/dL (1.7-2.3) 08/29/17 04:57
[2017-08-29] MEDS ORDERED: BENADRYL ONE (09:59)
[2017-08-29] MEDS ORDERED: BABY ASPIRIN PO SCH (10:00)
--- NOTE | 2017-08-29 10:18 | Progress Note ---
Assessment and Plan Cardiomyopathy, LVEF 30% Pulmonary sarcoidosis and history of emphysema/bronchiectasis Severe mitral regurgitation noted on 2D echo performed 11/2016 Moderate to severe TR noted on 2 D echo performed 11/2016 Chronic systolic heart failure with elevated LVEDP 37 mm Hg Coronary artery disease 80% ostial OM1 50% long tubular and calcified mid LAD 80% distal branch of large D1 100 % proximal RCA ESRD on HD x 6 years though left AV graft/fistula Recommendations: Asa 81 mg po daily Lipitor 40 mg po qhs Bidil 1 tab po tid Toprol XL 50 mg po daily Hold on ACEi/ARB or Sacubitril and aldactone due to hyperkalemia Outpatient TROY is warranted to further evaluate MR and TR severity Follow-up with primary geology professor upon discharge Subjective Date of service: 08/29/17 Principal diagnosis: Cardiomyopathy Interval history: Patient underwent a LHC via radial approach - no complications Objective Vital Signs Temp Pulse Resp BP Pulse Ox 08/29/17 07:15 18 08/29/17 05:04 97.7 F 83 16 96 08/29/17 04:00 79 08/29/17 00:55 98.5 F 79 20 126/90 95 08/28/17 22:50 86 140/93 08/28/17 21:57 18 08/28/17 20:00 86 08/28/17 19:55 98.0 F 86 20 140/93 98 08/28/17 17:15 98.2 F 72 16 145/96 08/28/17 17:00 70 150/92 08/28/17 16:45 78 150/99 08/28/17 16:30 74 141/94 08/28/17 16:15 77 148/98 08/28/17 16:00 83 153/100 08/28/17 15:45 75 148/96 08/28/17 15:30 78 150/96 08/28/17 15:15 74 143/96 08/28/17 15:00 82 148/100 08/28/17 14:45 73 151/100 08/28/17 14:30 82 147/105 08/28/17 14:15 75 148/95 08/28/17 14:05 80 134/102 08/28/17 13:35 97.8 F 81 18 140/95 - Physical Examination Neck: Positive: neck supple, trachea midline. Negative: JVD/HJR, Masses Cardiac: Positive: Reg Rate and Rhythm Lungs: Positive: Normal Exam Neuro: Positive: Grossly Intact Abdomen: Positive: Soft - Labs and Meds Coagulation 08/29/17 Range/Units 04:57 PT 15.1 H (12.2-14.9) Sec. INR 1.13 (0.87-1.13) APTT 35.6 (24.2-36.6) Sec. CBC 08/29/17 Range/Units 04:57 WBC 6.2 (4.5-11.0) K/mm3 RBC 4.21 (3.65-5.03) M/mm3 Hgb 12.1 (11.8-15.2) gm/dl Hct 36.9 (35.5-45.6) % Plt Count 89 L (140-440) K/mm3 Lymph # 0.9 L (1.2-5.4) K/mm3 [place] # 0.6 (0.0-0.8) K/mm3 Eos # 0.1 (0.0-0.4) K/mm3 Baso # 0.1 (0.0-0.1) K/mm3 Comprehensive Metabolic Panel 08/29/17 Range/Units 04:57 Sodium 140 (137-145) mmol/L Potassium 5.4 H (3.6-5.0) mmol/L Chloride 96.5 L (98-107) mmol/L Carbon Dioxide 29 (22-30) mmol/L BUN 37 H (9-20) mg/dL Creatinine 7.9 H (0.8-1.5) mg/dL Glucose 70 L (75-100) mg/dL Calcium 9.7 (8.4-10.2) mg/dL
[2017-08-29] MEDS: PEPCID PO SCH (11:04)
--- NOTE | 2017-08-29 11:04 | Progress Note ---
Assessment and Plan Cardiomyopathy, LVEF 30% Pulmonary sarcoidosis and history of emphysema/bronchiectasis Severe mitral regurgitation noted on 2D echo performed 11/2016 Moderate to severe TR noted on 2 D echo performed 11/2016 Chronic systolic heart failure with elevated LVEDP 37 mm Hg Coronary artery disease 80% ostial OM1 50% long tubular and calcified mid LAD 80% distal branch of large D1 100 % proximal RCA ESRD on HD x 6 years though left AV graft/fistula Recommendations: Asa 81 mg po daily Lipitor 40 mg po qhs Bidil 1 tab po tid Toprol XL 50 mg po daily Hold on ACEi/ARB or Sacubitril and aldactone due to hyperkalemia Outpatient TROY is warranted to further evaluate MR and TR severity Follow-up with primary mobile sales technician upon discharge Subjective Date of service: 08/29/17 Principal diagnosis: Cardiomyopathy Interval history: Patient underwent a cardiac cath today without complications Objective Vital Signs Temp Pulse Resp BP Pulse Ox 08/29/17 07:15 18 08/29/17 05:04 97.7 F 83 16 96 08/29/17 04:00 79 08/29/17 00:55 98.5 F 79 20 126/90 95 08/28/17 22:50 86 140/93 08/28/17 21:57 18 08/28/17 20:00 86 08/28/17 19:55 98.0 F 86 20 140/93 98 08/28/17 17:15 98.2 F 72 16 145/96 08/28/17 17:00 70 150/92 08/28/17 16:45 78 150/99 08/28/17 16:30 74 141/94 08/28/17 16:15 77 148/98 08/28/17 16:00 83 153/100 08/28/17 15:45 75 148/96 08/28/17 15:30 78 150/96 08/28/17 15:15 74 143/96 08/28/17 15:00 82 148/100 08/28/17 14:45 73 151/100 08/28/17 14:30 82 147/105 08/28/17 14:15 75 148/95 08/28/17 14:05 80 134/102 08/28/17 13:35 97.8 F 81 18 140/95 - Physical Examination Neck: Positive: neck supple, trachea midline. Negative: JVD/HJR, Masses Cardiac: Positive: Reg Rate and Rhythm Lungs: Positive: Normal Exam Abdomen: Positive: Soft - Labs and Meds Coagulation 08/29/17 Range/Units 04:57 PT 15.1 H (12.2-14.9) Sec. INR 1.13 (0.87-1.13) APTT 35.6 (24.2-36.6) Sec. CBC 08/29/17 Range/Units 04:57 WBC 6.2 (4.5-11.0) K/mm3 RBC 4.21 (3.65-5.03) M/mm3 Hgb 12.1 (11.8-15.2) gm/dl Hct 36.9 (35.5-45.6) % Plt Count 89 L (140-440) K/mm3 Lymph # 0.9 L (1.2-5.4) K/mm3 [place] # 0.6 (0.0-0.8) K/mm3 Eos # 0.1 (0.0-0.4) K/mm3 Baso # 0.1 (0.0-0.1) K/mm3 Comprehensive Metabolic Panel 08/29/17 Range/Units 04:57 Sodium 140 (137-145) mmol/L Potassium 5.4 H (3.6-5.0) mmol/L Chloride 96.5 L (98-107) mmol/L Carbon Dioxide 29 (22-30) mmol/L BUN 37 H (9-20) mg/dL Creatinine 7.9 H (0.8-1.5) mg/dL Glucose 70 L (75-100) mg/dL Calcium 9.7 (8.4-10.2) mg/dL
[2017-08-29] MEDS: LOPRESSOR PO SCH (11:07)
[2017-08-29] MEDS ORDERED: TOPROL XL PO SCH (12:00)
--- NOTE | 2017-08-29 12:27 | Cardiac Catherization Report ---
CORONARY ANGIOGRAM INDICATION: Cardiomyopathy, severe mitral and tricuspid regurgitation. ORDERING PHYSICIAN: Dr. John Balderas. PROCEDURES PERFORMED: 1. Selective left and right coronary angiography. 2. Left ventriculography. DESCRIPTION OF PROCEDURE: After obtaining written consent, the patient was draped using sterile technique. A 2% lidocaine was injected into the right wrist. A 6-[place] vascular sheath was inserted into the right radial artery. A 6-[place] JL4 catheter was used to selectively engage left coronary artery. A 6-[place] JR4 catheter was used to selectively engage the right coronary artery. A 6-[place] JR4 catheter was used to perform a hand injected LV gram. No complications occurred during the procedure. Hemostasis was achieved at the end of the procedure using manual pressure. SPECIMEN REMOVED: None. ESTIMATED BLOOD LOSS: Minimal. SEDATION ADMINISTERED: 1 mg of IV Versed and 100 mcg of IV fentanyl. Physician/patient [id number] sedation, start time 9:04 a.m. Physician/patient sedation [id number] stop time was 9:34 a.m. Total sedation time was 30 minutes. FINDINGS: HEMODYNAMICS: Aortic pressure 154/113. LV systolic pressure 158 mmHg, LVEDP 37 mmHg. CARDIAC STRUCTURES: The left ventricular cavity is dilated. There is evidence of severe global left ventricular hypokinesis. The left ventricular ejection fraction estimated at 30%. CORONARY ANATOMY: 1. This is a right dominant circulation. 2. The left main is a long large caliber vessel with evidence of luminal irregularities. 3. The left anterior descending artery is ectatic in the proximal segment and then tapers down in the mid as well as a distal segment. There is a 40-50% tubular and calcified stenosis in the mid LAD. The first diagonal artery is a very large caliber vessel that is a branching. There is an 80% stenosis involving one of the branches of the diagonal artery. The second diagonal artery is a small caliber vessel. 4. The left circumflex artery is a large caliber vessel. The first obtuse marginal has an 80% ostial OM lesion. Left to right collaterals are noted from the left circumflex artery to the distal right coronary artery. 5. The right coronary artery is 100% occluded in the proximal segment. IMPRESSION: 1. 100% occluded proximal right coronary artery with distal vessel filling via left to right collaterals. 2. 40-50% tubular calcified lesion in the mid LAD. 3. 80% ostial lesion involving the branching vessel of the first diagonal artery. 4. 80% ostial lesion involving the first obtuse marginal. 5. Dilated and hypokinetic left ventricle with an ejection fraction estimated at 30%. RECOMMENDATIONS: Continue current medical therapy and risk factor modification. Outpatient transesophageal echocardiogram is warranted to further evaluate the severity of the mitral and tricuspid regurgitation and dictate further intervention. JOB# [id number]
[2017-08-29 13:25] VITALS: BP 132/94
[2017-08-29] MEDS ORDERED: BIDIL 20/37.5MG PO SCH (14:00)
--- NOTE | 2017-08-29 15:35 | Discharge Summary ---
Providers - Providers Date of Admission: 08/28/17 11:51 Date of discharge: 08/29/17 Attending physician: ALFONZO ROQUE 08/28/17 10:05 Consult to Physician [CONS] Routine Comment: has been notified at 10am Consulting Provider: ALFONZO ROQUE Physician Instructions: Reason For Exam: admit 08/28/17 11:58 Consult to Physician [CONS] Routine Comment: Consulting Provider: JACLYN AVALOS Physician Instructions: Reason For Exam: Hyperkalemia/ESRD on HD 08/29/17 11:04 Consult to Cardiac Rehabilitation [CONS] Routine Reason For Exam: Cardiac Rehab Evaluation Primary care physician: JESSICA PABLO Hospitalization Reason for admission: elective coronary angiogram/hyperkalemia/stat hemodialysis Pertinent studies: Coronary angiogram; left ventricle Dilated ejection fraction 30% 100% occluded proximal right coronary artery 40-50% tubular calcified lesion in the mid LAD 80% ostial lesion involving branching vessel of the first diagonal artery 80% ostial lesion involving first obtuse marginal dilated cardiomyopathy ejection fraction 30% Recommend medical management risk factor modification and outpatient TROY for further evaluate severity of the mitral tricuspid regurgitation Procedures: Stat Hemodialysis Hospital course: Very pleasant 57-year-old -Fijian male patient with significant history of hypertension end-stage renal disease on hemodialysis was scheduled for elective cath on the day of admission by cardiology, however noted to have hyperkalemia with potassium of 6. Procedure was canceled, patient was evaluated by nephrology and is scheduled for stat hemodialysis Hospitalist services evaluated and admitted the patient , Intermittently managed, evaluated by cardiology, underwent left heart catheterization Findings as mentioned The patient's medications were optimized The patient is comfortable in no new complaints Vital signs stable, physical examination unremarkable Patient had mild elevation of potassium, refused Kayexalate, patient reports that he has Kayexalate at home And will be taking her dose once he gets home Advised to check with private senior pharmacy technician for further evaluation and management Advised to follow renal/hemodialysis per schedule Verbalized understanding Discharge diagnosis; --Hyperkalemia; stat hemodialysis --End Stage renal disease on hemodialysis; --Hypertension; stable --Chest pain/coronary artery disease; continue cardiac medications Disposition: TO HOME OR SELFCARE Time spent for discharge: 33 min Core Measure Documentation - Palliative Care Palliative Care/ Comfort Measures: Not Applicable - Core Measures Any of the following diagnoses?: heart failure - Heart Failure Discharge Requirements NAHOMY/ARB for LVSD if EF <40%: Yes Beta haroldo at discharge: Yes Exam - Constitutional Vitals: Temp Pulse Resp BP Pulse Ox 97.7 F 85 20 132/94 96 08/29/17 13:23 08/29/17 13:23 08/29/17 13:23 08/29/17 13:23 08/29/17 13:23 General appearance: Present: no acute distress, well-nourished - EENT Eyes: Present: PERRL, EOM intact - Neck Neck: Present: supple, normal ROM - Respiratory Respiratory effort: normal Respiratory: bilateral: diminished, negative: rales, rhonchi, wheezing - Cardiovascular Rhythm: regular Heart Sounds: Present: S1 & S2 - Extremities Extremities: no ischemia, No edema - Abdominal General gastrointestinal: Present: soft, non-tender, non-distended, normal bowel sounds - Integumentary Integumentary: Present: clear, warm - Musculoskeletal Musculoskeletal: strength equal bilaterally - Psychiatric Psychiatric: appropriate mood/affect, cooperative - Neurologic Neurologic: CNII-XII intact Plan Activity: no restrictions Diet: renal, other (cardiac diet) Additional Instructions: Follow-up nephrology/hemodialysis per schedule. Follow -up private senior pharmacy technician in 1 week. Advised to take Kayexalate[he shouldn't has at home] 30 g 1 dose tonight. Hemodialysis tomorrow Follow up with: JESSICA PABLO [Primary Care Provider] - 7 Days BENJAMIN PAGAN MD [Staff Physician] - 7 Days JAYNE JUNIOR MD [Staff Physician] - 7 Days Prescriptions: Aspirin [Aspirin BABY CHEW TAB] 81 mg PO QDAY #30 tab.chew AtorvaSTATin [Lipitor] 40 mg PO QHS #30 tablet Isosorb Dinit/Hydralazine [Bidil 20/37.5MG] 1 each PO Q8HR #90 tablet Metoprolol Xl [Metoprolol SUCCINATE ER TAB] 50 mg PO QDAY #30 tablet
[2017-08-29] MEDS ORDERED: KIONEX PO NR (16:00)
== END 2017-08-29 17:02 | disposition home or self-care (01) | DRG 286 ==
LOC: CATHLABREC 06:44 → 4A 11:51
PROVIDERS: ADMIT Internal Medicine; ATTEND Internal Medicine
PROC: 5A1D70Z Performance of Urinary Filtration, Intermittent, Less than 6 Hours Per Day (ICD-10-PCS; principal; 2017-08-28)
PROC: 4A023N7 Measurement of Cardiac Sampling and Pressure, Left Heart, Percutaneous Approach (ICD-10-PCS; 2017-08-29)
PROC: B2111ZZ Fluoroscopy of Multiple Coronary Arteries using Low Osmolar Contrast (ICD-10-PCS; 2017-08-29)
PROC: B2151ZZ Fluoroscopy of Left Heart using Low Osmolar Contrast (ICD-10-PCS; 2017-08-29)
DX: I25.10 Atherosclerotic heart disease of native coronary artery without angina pectoris (principal); N18.6 End stage renal disease; I13.2 Hypertensive heart and chronic kidney disease with heart failure and with stage 5 chronic kidney disease, or end stage renal disease; I50.22 Chronic systolic (congestive) heart failure; I42.0 Dilated cardiomyopathy; E87.5 Hyperkalemia; D86.89 Sarcoidosis of other sites; Z82.49 Family history of ischemic heart disease and other diseases of the circulatory system; Z79.899 Other long term (current) drug therapy; Z99.2 Dependence on renal dialysis
CPT/HCPCS: 36415; 80048; 82962; 83735; 85025; 85610; 85730; 93005; 93010; 93458; C1894; J0360; J0610; J1200; J1644; J2250; J3010; J7040; J7050; Q9967

== ENCOUNTER 2017-09-05 14:47 | Observation (INO) | payer MEDICARE ==
[2017-09-05 15:43] LABS: Mean Corpuscular HGB Conc 31 % (32-34); Mean Corpuscular Hemoglobin 28 pg (28-32); Mean Corpuscular Volume 92 fl (84-94); Red Cell Distribution Width 19.7 % (13.2-15.2)
[2017-09-05 15:44] LABS: Hematocrit 41.3 % (35.5-45.6); Hemoglobin 12.7 gm/dl (11.8-15.2); Platelet Count 78 K/mm3 (140-440)
[2017-09-05 16:41] LABS: BUN/Creatinine Ratio 6; Blood Urea Nitrogen 72 mg/dL (9-20); Calcium 10.2 mg/dL (8.4-10.2); Hemolysis Index 124
[2017-09-05] MEDS ORDERED: PROVENTIL IH ONE (17:23)
[2017-09-05] MEDS ORDERED: D50W (25GM) Syringe IV ONE (17:23)
[2017-09-05] MEDS ORDERED: CALCIUM GLUCONATE 1,000 MG in NACL 0.9% 100 ML IV ONE (17:23)
[2017-09-05] MEDS ORDERED: HumuLIN R IV ONE (17:23)
--- NOTE | 2017-09-05 17:26 | Emergency Department Report ---
HPI - General Chief Complaint: Dyspnea/Respdistress Time Seen by Provider: 09/05/17 17:19 - HPI HPI: 57-year-old -Turkish male presents to the emergency department with complaint of shortness of breath and needing hemodialysis. The patient gets hemodialysis on Monday/Monday/Monday and last had her on Monday. He missed his dialysis session on Monday. He denies any edema, chest pain, fever but does have the shortness of breath. He has a history of previous CVA, CHF, hypertension. His director of clinical services is Dr. [facility]. Patient says that he took some Kayexalate yesterday that caused him to have some diarrhea. No recent travel or sick contacts at home. ED Past Medical Hx - Past Medical History Hx Hypertension: Yes Hx CVA: Yes (13 YEARS AGO) Hx Congestive Heart Failure: Yes Hx Renal Disease: Yes (DIALYSIS) Hx Asthma: No Hx COPD: No Additional medical history: Dialysis - Surgical History Additional Surgical History: Button holes dialysis access to left forearm, BACK SURGERY - Social History Smoking Status: Never Smoker Substance Use Type: None - Medications Home Medications: Home Medications Medication Instructions Recorded Confirmed Last Taken Type Unobtainable 09/05/17 09/05/17 Unknown History ED Review of Systems ROS: Stated complaint: SHORTNESS OF BREATH/OVERLOAD Other details as noted in HPI Comment: All other systems reviewed and negative Constitutional: denies: chills, fever Eyes: denies: eye pain, eye discharge, vision change ENT: denies: ear pain, throat pain Respiratory: shortness of breath. denies: cough Cardiovascular: denies: chest pain, edema Gastrointestinal: denies: abdominal pain, nausea, diarrhea Genitourinary: denies: urgency, dysuria Musculoskeletal: denies: back pain, joint swelling, arthralgia Skin: denies: rash, lesions Neurological: denies: headache, weakness, paresthesias Physical Exam - Physical Exam Vital Signs: Vital Signs 09/05/17 15:01 Temperature 97.6 F Pulse Rate 89 Respiratory 22 Rate Blood Pressure 162/104 O2 Sat by Pulse 98 Oximetry Physical Exam: GENERAL: The patient is well-developed well-nourished. HENT: Normocephalic. Atraumatic. Patient has moist mucous membranes. EYES: Extraocular motions are intact. Pupils equal reactive to light bilaterally. NECK: Supple. Trachea is midline. CHEST/LUNGS: Coarse breath sounds at the chest. No tachypnea or accessory muscle use. There is no respiratory distress noted. HEART/CARDIOVASCULAR: Regular. There is no tachycardia. There is no murmur. ABDOMEN: Abdomen is soft, nontender. Patient has normal bowel sounds. There is no abdominal distention. SKIN: Skin is warm and dry. NEURO: The patient is awake, alert, and oriented. The patient is cooperative. The patient has no focal neurologic deficits. The patient has normal speech. MUSCULOSKELETAL: There is no tenderness or deformity. There is no limitation range of motion. There is no evidence of acute injury. There appears to be a patent left upper extremity dialysis fistula. ED Course Vital Signs 09/05/17 15:01 Temperature 97.6 F Pulse Rate 89 Respiratory 22 Rate Blood Pressure 162/104 O2 Sat by Pulse 98 Oximetry - Consultations Consultation #1: 09/05/17 18:[address] Espino, who is familiar with the patient and one of the nephrologists he sees, and she is aware of the patient's presentation with recent missed dialysis, hyperkalemia and volume overload. She is going to arrange for emergent dialysis this evening. ED Medical Decision Making - Lab Data Result diagrams: 09/05/17 15:11 09/05/17 15:11 - EKG Data -: EKG Interpreted by Me EKG shows normal: sinus rhythm (PVCs), axis (left axis deviation), intervals, QRS complexes (right bundle branch block), ST-T waves Rate: normal - EKG Data When compared to previous EKG there are: no significant change Interpretation: unchanged when compared t (08/30/17) - Medical Decision Making Patient presents with some shortness of breath and having missed his last dialysis session. Chest x-ray shows some pulmonary vascular congestion but no overt pulmonary edema or pleural effusions. He does not appear to be in any respiratory distress. There is some hypertension but otherwise vital signs are stable including being afebrile. Labs do show his renal insufficiency and he also has a potassium level of 7. He was given albuterol, Kayexalate, calcium. Nephrology has been contacted and the patient will get emergent dialysis this evening. He has been accepted for admission by the hospitalist, Dr. Baez. - Differential Diagnosis hyperkalemia, CHF, pneumonia Critical Care Time: No Critical care attestation.: If time is entered above; I have spent that time in minutes in the direct care of this critically ill patient, excluding procedure time. ED Disposition Clinical Impression: ESRD (end stage renal disease) on dialysis, Hyperkalemia Hypertension Qualifiers: Hypertension type: essential hypertension Qualified Code(s): I10 - Essential ( primary) hypertension Volume overload Qualifiers: Hypervolemia type: unspecified Qualified Code(s): E87.70 - Fluid overload, unspecified Disposition: DC-09 OP ADMIT IP TO THIS HOSP Is pt being admited?: Yes Condition: Fair Instructions: Hypertension (ED) Referrals: PRIMARY CARE, [Primary Care Provider] - 3-5 Days
[2017-09-05] MEDS ORDERED: KIONEX PO ONE (18:07)
[2017-09-05] MEDS ORDERED: NACL 0.9% 100 ML IV PRN (18:07)
--- NOTE | 2017-09-05 20:06 | XRay Report ---
FINAL REPORT EXAM: XR CHEST 1V AP HISTORY: SOB TECHNIQUE: AP portable view of the chest. PRIORS: None. FINDINGS: Cardiac silhouette is moderately enlarged. The pulmonary vascularity appears normal. The lungs are clear. The bones and soft tissues are unremarkable. IMPRESSION: Moderate cardiomegaly without evidence of acute CHF
[2017-09-05] MEDS ORDERED: HEPARIN SUB-Q SCH (22:00)
[2017-09-05] MEDS ORDERED: NACL 0.9 (PRIMING MACHINE ONLY DIALYSIS) MC ONE (22:18)
--- NOTE | 2017-09-06 00:47 | History and Physical Report ---
History of Present Illness Date of examination: 09/05/17 Date of admission: 09/05/17 18:09 Chief complaint: Chief complaint Increasing shortness of breath for 1 day History of present illness: ADRY: 57-year-old black female comes in for increasing shortness of breath. Patient missed dialysis sessions on Monday. Patient states he had an appointment yesterday with physicians and hence missed dialysis. Increasing shortness of breath. No chest pain. Exacerbating factor is that Ms. dialysis. Shortness of breath on minimal exertion. No fever no chills Past Medical History Hx Hypertension: Yes Hx CVA: Yes (13 YEARS AGO) Hx Congestive Heart Failure: Yes Hx Renal Disease: Yes (DIALYSIS) Additional medical history: Dialysis Surgical History Additional Surgical History: Button holes dialysis access to left forearm, BACK SURGERY Social History Smoking Status: Never Smoker Substance Use Type: None Medications Home Medications: Home Medications Medication Instructions Recorded Confirmed Last Taken Type Unobtainable 09/05/17 09/05/17 Unknown History Review of Systems ROS: Stated complaint: SHORTNESS OF BREATH/OVERLOAD Other details as noted in HPI Comment: All other systems reviewed and negative Constitutional: denies: chills, fever Eyes: denies: eye pain, eye discharge, vision change ENT: denies: ear pain, throat pain Respiratory: shortness of breath. denies: cough Cardiovascular: denies: chest pain, edema Gastrointestinal: denies: abdominal pain, nausea, diarrhea Genitourinary: denies: urgency, dysuria Musculoskeletal: denies: back pain, joint swelling, arthralgia Skin: denies: rash, lesions Neurological: denies: headache, weakness, paresthesias Medications and Allergies Allergies Allergy/AdvReac Type Severity Reaction Status Date / Time No Known Allergies Allergy Unverified 07/15/14 06:30 Home Medications Medication Instructions Recorded Confirmed Last Taken Type Unobtainable 09/05/17 09/05/17 Unknown History Active Meds: Active Medications Heparin Sodium (Porcine) (Heparin) 5,000 unit SUB-Q Q8HR JEET Sodium Chloride (Nacl 0.9%) 100 mls @ 999 mls/hr IV LAURA PRN PRN Reason: Hypotension Exam - Constitutional Vitals: Temp Pulse Resp BP Pulse Ox 98.4 F 82 18 158/109 96 09/05/17 20:30 09/05/17 23:30 09/05/17 20:30 09/05/17 23:30 09/05/17 19:47 General appearance: Present: no acute distress, well-nourished - EENT Eyes: Present: PERRL ENT: hearing intact, clear oral mucosa - Neck Neck: Present: supple, normal ROM - Respiratory Respiratory effort: normal Respiratory: bilateral: CTA - Cardiovascular Heart rate: 80 Rhythm: regular Heart Sounds: Present: S1 & S2. Absent: rub, click - Extremities Extremities: no ischemia, pulses intact, pulses symmetrical, No edema Peripheral Pulses: within normal limits - Abdominal General gastrointestinal: Present: soft, non-tender, non-distended, normal bowel sounds Male genitourinary: Present: normal - Rectal Rectal Exam: deferred - Integumentary Integumentary: Present: clear, warm, dry - Musculoskeletal Musculoskeletal: gait normal, strength equal bilaterally - Psychiatric Psychiatric: appropriate mood/affect, intact judgment & insight - Neurologic Neurologic: CNII-XII intact, moves all extremities - Allied Health Allied health notes reviewed: nursing, case management Results - Labs CBC & Chem 7: 09/05/17 15:11 09/05/17 15:11 Labs: Laboratory Last Values WBC 6.0 K/mm3 (4.5-11.0) 09/05/17 15:11 RBC 4.50 M/mm3 (3.65-5.03) 09/05/17 15:11 Hgb 12.7 gm/dl (11.8-15.2) 09/05/17 15:11 Hct 41.3 % (35.5-45.6) 09/05/17 15:11 MCV 92 fl (84-94) 09/05/17 15:11 MCH 28 pg (28-32) 09/05/17 15:11 MCHC 31 % (32-34) L 09/05/17 15:11 RDW 19.7 % (13.2-15.2) H 09/05/17 15:11 Plt Count 78 K/mm3 (140-440) L 09/05/17 15:11 Sodium 134 mmol/L (137-145) L 09/05/17 15:11 Potassium 7.0 mmol/L (3.6-5.0) H* 09/05/17 15:11 Chloride 94.8 mmol/L (98-107) L 09/05/17 15:11 Carbon Dioxide 19 mmol/L (22-30) L 09/05/17 15:11 Anion Gap 27 mmol/L 09/05/17 15:11 BUN 72 mg/dL (9-20) H 09/05/17 15:11 Creatinine 12.7 mg/dL (0.8-1.5) H 09/05/17 15:11 Estimated GFR 5 ml/min 09/05/17 15:11 BUN/Creatinine Ratio 6 % 09/05/17 15:11 Glucose 84 mg/dL (75-100) 09/05/17 15:11 POC Glucose 90 (70-105) 09/05/17 18:11 Calcium 10.2 mg/dL (8.4-10.2) 09/05/17 15:11 NT-Pro-B Natriuret Pep > 19105 pg/mL (0-900) H 09/05/17 15:11 - Imaging and Cardiology EKG: report reviewed Imaging and Cardiology: Chest x-ray FINDINGS: Cardiac silhouette is moderately enlarged. The pulmonary vascularity appears normal. The lungs are clear. The bones and soft tissues are unremarkable. IMPRESSION: Moderate cardiomegaly without evidence of acute CHF Assessment and Plan Advance Directives: Yes (full code) VTE prophylaxis?: Chemical Plan of care discussed with patient/family: Yes - Patient Problems (1) ESRD (end stage renal disease) on dialysis Current Visit: Yes Status: Acute (2) Hyperkalemia Current Visit: Yes Status: Acute Plan to address problem: Patient is given anti-hyperkalemia cocktail and also taken for emergent hemodialysis (3) Hypertension Current Visit: Yes Status: Chronic Qualifiers: Hypertension type: essential hypertension Qualified Code(s): I10 - Essential (primary) hypertension Plan to address problem: continue antihypertensives (4) Volume overload Current Visit: Yes Status: Acute Qualifiers: Hypervolemia type: unspecified Qualified Code(s): E87.70 - Fluid overload, unspecified Plan to address problem: Emergent hemodialysis for increased ultrafiltration (5) CHF (congestive heart failure) Current Visit: No Status: Chronic Qualifiers: Heart failure type: combined systolic and diastolic Plan to address problem: Adjust hemodialysis accordingly (6) Noncompliance of patient with renal dialysis Current Visit: No Status: Chronic Plan to address problem: Patient counseled (7) DVT prophylaxis Current Visit: Yes Status: Acute Plan to address problem: Heparin 5000 every 12h
[2017-09-06] MEDS ORDERED: ZOFRAN IV PRN (00:59)
[2017-09-06] MEDS ORDERED: TYLENOL PO PRN (00:59)
[2017-09-06] MEDS ORDERED: SODIUM CHLORIDE FLUSH SYRINGE 10 ML IV PRN (00:59)
[2017-09-06] MEDS ORDERED: MORPHINE IV PRN (00:59)
[2017-09-06] MEDS ORDERED: SODIUM CHLORIDE FLUSH SYRINGE 10 ML IV SCH (10:00)
[2017-09-06 12:32] LABS: Calcium 9.9 mg/dL (8.4-10.2)
[2017-09-06] MEDS ORDERED: NACL 0.9% 100 ML IV PRN (13:17)
--- NOTE | 2017-09-06 13:23 | Consultation ---
History of Present Illness - Reason for Consult Consult date: 09/06/17 end stage renal disease, hyperkalemia - History of Present Illness Mr. Castellon is a 57yo with ESRD on HD MWF who presented to the ED yesterday with SOB. Patient last dialyzed on Monday, September 01. He missed dialysis treatment on Monday. Labs were notable for K 7.0. He is s/p STAT HD yesterday. Patient has no complaints at time of visit today and is requests to be discharged after HD today. Past History Past Medical History: ESRD, heart failure, stroke Past Surgical History: Other (back surgery, AV access surgery) Social history: no significant social history Family history: no significant family history Medications and Allergies Allergies Allergy/AdvReac Type Severity Reaction Status Date / Time No Known Allergies Allergy Unverified 07/15/14 06:30 Home Medications Medication Instructions Recorded Confirmed Last Taken Type Unobtainable 09/05/17 09/05/17 Unknown History Active Meds: Active Medications Acetaminophen (Tylenol) 650 mg PO Q4H PRN PRN Reason: Pain MILD(1-3)/Fever >100.5/FRIAS Heparin Sodium (Porcine) (Heparin) 5,000 unit SUB-Q Q8HR JEET Last Admin: 09/06/17 02:24 Dose: Not Given Sodium Chloride (Nacl 0.9%) 100 mls @ 999 mls/hr IV LAURA PRN PRN Reason: Hypotension Sodium Chloride (Nacl 0.9%) 100 mls @ 999 mls/hr IV LAURA PRN PRN Reason: Hypotension Morphine Sulfate (Morphine) 2 mg IV Q4H PRN PRN Reason: Pain, Moderate (4-6) Ondansetron HCl (Zofran) 4 mg IV Q8H PRN PRN Reason: Nausea And Vomiting Sodium Chloride (Sodium Chloride Flush Syringe 10 Ml) 10 ml IV BID JEET Sodium Chloride (Sodium Chloride Flush Syringe 10 Ml) 10 ml IV PRN PRN PRN Reason: LINE FLUSH Review of Systems All systems: negative Exam - Vital Signs Vital signs: Vital Signs Temp Pulse Resp BP Pulse Ox 97.6 F 89 22 162/104 98 09/05/17 15:01 09/05/17 15:01 09/05/17 15:01 09/05/17 15:01 09/05/17 15:01 - General Appearance General appearance: well-developed, well-nourished EENT: ATNC Respiratory: Clear to Ascultation Heart: regular, S1S2 Gastrointestinal: Present: normal. 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
--- NOTE | 2017-09-06 14:39 | Progress Note ---
Assessment and Plan Assessment and plan: 57-year-old -Mongolian male with past medical history significant for end- stage renal disease on hemodialysis presented to the emergency department with complaints of shortness of breath after he missed his dialysis on Monday. At presentation potassium level was 7 was treated with hyperkalemia cocktail and dialysis. Nephrology consulted and due to hemodialysis again today. This morning his potassium levels 5.4. Patient is not in distress. Thrombocytopenia ; no active bleeding, workup as an O/P. DVT prophylaxis; SCDs because of thrombocytopenia. Disposition - Per nephrology. History Interval history: Patient was seen and evaluated this morning, shortness of breath subsided. No new complaints. Hospitalist Physical - Physical exam Narrative exam: Not in cardiopulmonary distress. The patient appeared well nourished and normally developed. Vital signs as documented. Head exam is unremarkable. No scleral icterus . Neck is without jugular venous distension, thyromegaly, or carotid bruits. Lungs are clear to auscultation. Cardiac exam reveals regular rate and Rhythm. First and second heart sounds normal. No murmurs, rubs or gallops. Abdominal exam reveals normal bowel sounds, no masses, no organomegaly and no aortic enlargement. Extremities are nonedematous and both femoral and pedal pulses are normal. CUSTOMER SUCCESS SPECIALIST: Alert and oriented 3. No focal weakness. - Constitutional Vitals: Temp Pulse Resp BP Pulse Ox 97.4 F L 90 18 143/105 99 09/06/17 11:55 09/06/17 11:55 09/06/17 11:55 09/06/17 11:55 09/06/17 11:55 General appearance: Present: no acute distress, well-nourished Results - Labs CBC & Chem 7: 09/05/17 15:11 09/06/17 11:59 Labs: Laboratory Last Values WBC 6.0 K/mm3 (4.5-11.0) 09/05/17 15:11 RBC 4.50 M/mm3 (3.65-5.03) 09/05/17 15:11 Hgb 12.7 gm/dl (11.8-15.2) 09/05/17 15:11 Hct 41.3 % (35.5-45.6) 09/05/17 15:11 MCV 92 fl (84-94) 09/05/17 15:11 MCH 28 pg (28-32) 09/05/17 15:11 MCHC 31 % (32-34) L 09/05/17 15:11 RDW 19.7 % (13.2-15.2) H 09/05/17 15:11 Plt Count 78 K/mm3 (140-440) L 09/05/17 15:11 Sodium 137 mmol/L (137-145) 09/06/17 11:59 Potassium 5.4 mmol/L (3.6-5.0) H D 09/06/17 11:59 Chloride 94.9 mmol/L (98-107) L 09/06/17 11:59 Carbon Dioxide 27 mmol/L (22-30) D 09/06/17 11:59 Anion Gap 21 mmol/L 09/06/17 11:59 BUN 40 mg/dL (9-20) H 09/06/17 11:59 Creatinine 9.1 mg/dL (0.8-1.5) H 09/06/17 11:59 Estimated GFR 7 ml/min 09/06/17 11:59 BUN/Creatinine Ratio 4 % 09/06/17 11:59 Glucose 70 mg/dL (75-100) L 09/06/17 11:59 POC Glucose 90 (70-105) 09/05/17 18:11 Calcium 9.9 mg/dL (8.4-10.2) 09/06/17 11:59 NT-Pro-B Natriuret Pep > 98368 pg/mL (0-900) H 09/05/17 15:11
--- NOTE | 2017-09-06 15:00 | Discharge Summary ---
Providers - Providers Date of Admission: 09/05/17 18:09 Attending physician: SID PATHAK MD 09/05/17 18:07 Consult to Physician [CONS] Routine Comment: Consulting Provider: JELLY SPEAR Physician Instructions: Reason For Exam: Dialysis, Hyperkalemia Primary care physician: LEARNING [employer]PERATIONS SPECIALIST Hospitalization Reason for admission: fluid overload secondary to missed dialysis Condition: Fair Hospital course: 57-year-old black female comes in for increasing shortness of breath. Patient missed dialysis sessions on Monday. Patient states he had an appointment yesterday with physicians and hence missed dialysis. Increasing shortness of breath. No chest pain. Exacerbating factor is that Ms. dialysis. Shortness of breath on minimal exertion. No fever no chills At presentation. Patient was fluid overloaded and his potassium level was 7. Patient was treated with hyperkalemia coctail and emergency dialysis was done. This morning his potassium level was 5.4 and he get dialysis and discharged. Patient was hemodynamically stable at the time of discharge. Nephrology consult appreciated. Disposition: - TO HOME OR SELFCARE Time spent for discharge: 34 minutes - Discharge Diagnoses (1) ESRD (end stage renal disease) on dialysis Status: Acute (2) Hyperkalemia Status: Acute (3) Volume overload Status: Acute Qualifiers: Hypervolemia type: unspecified Qualified Code(s): E87.70 - Fluid overload, unspecified (4) Hypertension Status: Chronic Qualifiers: Hypertension type: essential hypertension Qualified Code(s): I10 - Essential (primary) hypertension (5) Noncompliance of patient with renal dialysis Status: Chronic Core Measure Documentation - Palliative Care Palliative Care/ Comfort Measures: Not Applicable - Core Measures Any of the following diagnoses?: none Exam - Physical Exam Narrative exam: Not in cardiopulmonary distress. The patient appeared well nourished and normally developed. Vital signs as documented. Head exam is unremarkable. No scleral icterus . Neck is without jugular venous distension, thyromegaly, or carotid bruits. Lungs are clear to auscultation. Cardiac exam reveals regular rate and Rhythm. First and second heart sounds normal. No murmurs, rubs or gallops. Abdominal exam reveals normal bowel sounds, no masses, no organomegaly and no aortic enlargement. Extremities are nonedematous and both femoral and pedal pulses are normal. [employer]: Alert and oriented 3. No focal weakness. - Constitutional Vitals: Temp Pulse Resp BP Pulse Ox 97.4 F L 90 18 143/105 99 09/06/17 11:55 09/06/17 11:55 09/06/17 11:55 09/06/17 11:55 09/06/17 11:55 Plan Activity: no restrictions Weight Bearing Status: Full Weight Bearing Diet: low salt, renal Additional Instructions: Follow @[facility] in 1-2 weeks Follow up with: PRIMARY CAREMD [Primary Care Provider] - 3-5 Days
[2017-09-06] MEDS ORDERED: NACL 0.9 (PRIMING MACHINE ONLY DIALYSIS) MC ONE (16:50)
[2017-09-06 18:39] VITALS: BP 135/98
== END 2017-09-06 19:46 | disposition home or self-care (01) ==
LOC: ED 14:47 → 3A 18:09
PROVIDERS: ADMIT Internal Medicine; ATTEND Internal Medicine
DX: I13.2 Hypertensive heart and chronic kidney disease with heart failure and with stage 5 chronic kidney disease, or end stage renal disease (principal); I50.9 Heart failure, unspecified; N18.6 End stage renal disease; E87.5 Hyperkalemia; E87.70 Fluid overload, unspecified; Z91.19 Patient's noncompliance with other medical treatment and regimen; Z99.2 Dependence on renal dialysis
CPT/HCPCS: 36415; 71045; 80048; 82962; 83880; 85027; 93005; 93010; 94640; 96374; 99285; G0257; G0378; J0610; J7030